=== PATIENT | male | born 1965 | race Caucasian/White ===

== ENCOUNTER → 2023-04-20 16:02 | Outpatient (REF) | payer OTHER, SELFPAY | LOC: HWRAD 16:02 | PROVIDERS: ATTENDING PHYSICIAN Surgery; FAMILY PHYSICIAN Internal Medicine | DX: N13.2 Hydronephrosis with renal and ureteral calculous obstruction (principal) | CPT/HCPCS: 74176 ==

== ENCOUNTER → 2023-04-29 11:40 | Outpatient (REF) | payer OTHER, SELFPAY | LOC: HWRAD 11:40 | PROVIDERS: ATTENDING PHYSICIAN Surgery; FAMILY PHYSICIAN Internal Medicine | DX: N28.89 Other specified disorders of kidney and ureter (principal) | CPT/HCPCS: 74178; Q9967 ==

== ENCOUNTER → 2023-11-23 10:47 | Outpatient (REF) | payer OTHER, SELFPAY | LOC: HWRAD 10:47 | PROVIDERS: ATTENDING PHYSICIAN Internal Medicine Hematology & Oncology; FAMILY PHYSICIAN Nurse Practitioner Family; REFERRING PHYSICIAN Urology | DX: C64.2 Malignant neoplasm of left kidney, except renal pelvis (principal) | CPT/HCPCS: 71250 ==

== ENCOUNTER 2023-11-25 06:09 | Day surgery (SDC) | payer OTHER, SELFPAY ==
[2023-11-25 06:58] VITALS: BMI 43.0
[2023-11-25 07:01] LABS: Glucose - Point of Care 121 mg/dl (70-99)
[2023-11-25 07:02] VITALS: BP 113/63
[2023-11-25 08:25] VITALS: BP 106/54
[2023-11-25 08:40] VITALS: BP 98/83
== END 2023-11-25 08:50 | disposition home or self-care (01) ==
LOC: SDS 06:09
PROVIDERS: ATTENDING PHYSICIAN Internal Medicine
DX: Z12.11 Encounter for screening for malignant neoplasm of colon (principal); D12.4 Benign neoplasm of descending colon; K57.30 Diverticulosis of large intestine without perforation or abscess without bleeding; K62.1 Rectal polyp; K64.9 Unspecified hemorrhoids; Z86.010 Personal history of colon polyps
CPT/HCPCS: G0105; 88305; 82962

== ENCOUNTER → 2023-12-08 12:55 | Outpatient (REF) | payer OTHER, SELFPAY | LOC: PAVMRI 12:55 | PROVIDERS: ATTENDING PHYSICIAN Urology; FAMILY PHYSICIAN Nurse Practitioner Family | DX: C64.2 Malignant neoplasm of left kidney, except renal pelvis (principal) | CPT/HCPCS: 74183; A9575 ==